=== PATIENT | female | born 1980 | race Caucasian/White ===

== ENCOUNTER 2018-03-05 15:54 | Inpatient (IN) | payer OTHER, SELFPAY ==
[2018-03-05 22:02] VITALS: BMI 26.4
[2018-03-05] MEDS: Lactated Ringer's 1,000 ML IV SCH (22:25)
[2018-03-05 22:44] LABS: Hemoglobin 12.5 g/dL (12.0-16.0); Mean Corpuscular HGB CONC 35.4 g/dL (32.0-36.0); Mean Corpuscular Hemoglobin 32.8 pg (27.0-31.0); Mean Corpuscular Volume 92.7 fL (78.0-98.0); Mean Platelet Volume 7.5 fL (7.4-10.4); Platelet Count 254 thou/uL (130-400); RBC Distribution Width 12.1 % (11.5-14.5); Red Blood Cell (RBC) Count 3.82 mill/uL (4.20-5.40); White Blood Cell (WBC) Count 8.1 thou/uL (4.8-10.8)
[2018-03-05] MEDS ORDERED: Ondansetron PF 4 MG/2 ML Vial IVP PRN (23:08)
[2018-03-05] MEDS ORDERED: Acetaminophen 500 MG TAB PO PRN (23:08)
[2018-03-05] MEDS ORDERED: Butorphanol Tartrate 1 MG/ML VIAL SLOW IVP PRN (23:08)
[2018-03-05] MEDS ORDERED: Promethazine HCl 25 MG/ML VIAL IM PRN (23:08)
[2018-03-05] MEDS ORDERED: Misoprostol 200 MCG TAB PR PRN (23:24)
[2018-03-05] MEDS ORDERED: NS / Oxytocin 40 units/1000ml 1,000 ML IV PRN (23:24)
[2018-03-05] MEDS ORDERED: Diphenoxylate HCl/Atropine Tablet PO PRN (23:24)
[2018-03-05] MEDS ORDERED: Carboprost 250 MCG/ML AMP IM PRN (23:24)
[2018-03-05] MEDS ORDERED: Ibuprofen 800 MG TAB PO PRN (23:24)
[2018-03-05] MEDS ORDERED: Lidocaine 1% (PF) 30 ML VIAL SC PRN (23:24)
[2018-03-05] MEDS ORDERED: Methylergonovine 0.2 MG/ML VIAL IM PRN (23:24)
--- NOTE | 2018-03-05 23:29 | PDOC.LDHP ---
Labor and Delivery H&P Chief complaint: scheduled induction HPI: 38 yo G1 @ 37.2 wks by LMP and 22.2 wk sono admitted for scheduled induction due to IUGR and placental insufficiency. Patient denies vaginal discharge/ bleeding, contractions, headache. Feels movement. Desires epidural. Plans to breastfeed. Current gestational age (weeks): 37 Due date: 04/12/18 Dating criteria: second trimester ultrasound (22.2 wk sono) Grav: 1 Para: 0 Current complications: gestational diabetes (A1GDM, diet controlled), IUGR (8.5% EFW on 03/04/18) Past Medical History: Denies Current medications: pre- vitamins Previous surgical history: appendectomy Allergies/Adverse Reactions: Allergies Allergy/AdvReac Type Severity Reaction Status Date / Time No Known Drug Allergies Allergy Verified 03/05/18 21:50 Social history: none - Physical Exam Vital signs reviewed and normal: yes General: NAD Heart: RRR Lungs: CTAB Abdomen: NTTP Extremeties: no edema FHT: category 1 (145/mod/+accel/no decel) [place] contractions every: no ctx - Vaginal Exam cm dilated: 0 Effacement: 0% Station: -3 - OB Labs Blood type: O RH: positive Antibody Screen: negative HIV: negative RPR: negative HEPSAg: negative 1 hour GCT: positive (141) 3 hour GTT: GBS: negative Rubella: immune - Assessment L&D Assessment: medically indicated induction - Plan Plan: admit to L&D, cervical ripening -: IOL, medically indicated - cervical exam closed/thick/high @ 2300 - cephalic on sono 03/04 - Cat I strip - desires epidural, anesthesia consult placed - plans to breast feed - plan to place cytotec for cervical ripening IUGR - EFW 54% @ 22wks - EFW 13% @ 36.6 - EFW 8.5% @ 37.1 - MFM recommended delivery before 38 wks - 03/04/18 BPP was 8/8 Placental insufficiency - S/D ratio 93% @ 36.6 - S/D ratio 96% @ 37.1 AMA - no abnormalities seen on sono A1GDM - well controlled, at goal with diet Late to care - poor dating, 22.2 wk sono Dispo: admit for IOL, plan for cervical ripening
[2018-03-05 23:37] LABS: HBSAg Index 0.27 S/CO (0-0.99); Hep B Surf Ag Non-Reactive S/CO (NonReactive)
[2018-03-05 23:45] LABS: Syphilis Antibody Nonreactive (Nonreactive); Syphilis Antibody Index 0.03 S/CO (<1.00 Non-Reactive)
[2018-03-05] MEDS: Misoprostol 100 MCG TAB VAG SCH (23:50)
[2018-03-05] MEDS: NS w/ Oxytocin 10 units 500 ML IV SCH (23:51)
--- NOTE | 2018-03-06 03:02 | PDOC.LDPN ---
Labor & Delivery Progress Note - Subjective Subjective: comfortable (mild pain with contractions) - Objective Abnormal vital signs: BP 157/92 General: NAD Uterine fundus: non tender Dilation: 0 Effacement: 0% Station: -3 FHT: category 1 (135/mod/+accel/no decel) [place] contractions every: 1-2 min Plan: continue plan of care, labor augmentation -: IOL, medically indicated - cervical exam closed/thick/high @ 2300 - 0315 closed/thick/high - cephalic on sono 03/04 - Cat I strip - desires epidural, anesthesia consult placed - plans to breast feed - received 1 dose cytotec, however unable to place another at this time d/t tachysystole - BP 150s-162 max systolic. Pt asymptomatic. Will get CMP, urine prot/cr. IUGR - EFW 54% @ 22wks - EFW 13% @ 36.6 - EFW 8.5% @ 37.1 - MFM recommended delivery before 38 wks - 03/04/18 BPP was 8/8 Placental insufficiency - S/D ratio 93% @ 36.6 - S/D ratio 96% @ 37.1 AMA - no abnormalities seen on sono A1GDM - well controlled, at goal with diet Late to care - poor dating, 22.2 wk sono
[2018-03-06 03:30] LABS: ALT (SGPT) 25 U/L (8-55); AST (SGOT) 24 U/L (5-34); Albumin 3.1 g/dL (3.5-5.0); Alkaline Phosphatase 179 U/L (40-150); Anion Gap 11 mmol/L (10-20); BUN (Urea Nitrogen) 16 mg/dL (7.0-18.7); Bilirubin, Total 0.3 mg/dL (0.2-1.2); Calc. Creatinine Clearance 117 mL/min (70-130); Carbon Dioxide 22 mmol/L (22-29); Chloride 107 mmol/L (98-107); Estimated GFR-MDRD Greater than 90; Glucose 94 mg/dL (70-105); Potassium 4.2 mmol/L (3.5-5.1); Protein, Total 6.1 g/dL (6.0-8.3); Sodium 136 mmol/L (136-145)
[2018-03-06] MEDS: Misoprostol 100 MCG TAB VAG SCH (06:21)
--- NOTE | 2018-03-06 07:58 | PDOC.LDPN ---
Labor & Delivery Progress Note - Subjective Subjective: comfortable, no concerns - Objective Abnormal vital signs: BP 160/73 @ 0654 General: NAD, resting, breathing through contractions Uterine fundus: non tender Dilation: 0.5 Effacement: 0% Station: -3 FHT: category 1 [place] contractions every: 2-3 every 10 minutes Resuscitative measures: maternal IV fluids Plan: labor augmentation -: 38YO @ 37.3 weeks by 22.2 week sono here for a medically indicated IOL. IOL, medically indicated - cephalic presentation on sono 03/04 - Cat I strip w/ baseline HR in 120-130s with moderate variability and accels present. 1 variable seen around 0600. - cervical exam 0.5/0/-3 @ 0700 s/p 1 dose of cytotec on admission. - Now cindi 2-3xs every [address] a second cytotec and possible place a balloon once patient is slightly more dilated. - Patient desires epidural, anesthesia consult placed. - plans to breast feed Elevated BP readings w/o diagnosis of HTN or HTN in : - Patient has had a few BP readings ranging from 150s-162 max systolic but remains asymptomatic. - CBC and CMP unremarkable. Urine protein/Cr pending. - Will continue to monitor pressures closely. IUGR - EFW 54% @ 22wks - EFW 13% @ 36.6 - EFW 8.5% @ 37.1 - MFM recommended delivery before 38 wks - 03/04/18 BPP was 8/8 Placental insufficiency - S/D ratio 93% @ 36.6 - S/D ratio 96% @ 37.1 AMA - no abnormalities seen on sono A1GDM - Aware, well controlled as patient is at goal with diet. Late to care - poor dating, 22.2 wk sono
[2018-03-06 10:19] LABS: Protein, Urine Random Quant Less than 10 mg/dL (1-14)
[2018-03-06] MEDS ORDERED: Fentanyl 4 mcg/Bup 0.1% Cadd 100 ML ONE ×2 (11:15→21:34)
--- NOTE | 2018-03-06 11:20 | PDOC.LDPN ---
Labor & Delivery Progress Note - Subjective Subjective: other (very uncomfortable during cervical check but otherwise comfortable) - Objective Abnormal vital signs: last BP 152/67 @ 0900 General: breathing through contractions Uterine fundus: non tender Dilation: fingertip Effacement: 0% Station: -2 FHT: category 1, variability present [place] contractions every: every 1-2 minutes Resuscitative measures: maternal IV fluids Plan: pitocin for augmentation -: 38YO @ 37.3 weeks by 22.2 week sono here for a medically indicated IOL. IOL, medically indicated - cephalic presentation on sono 03/04 - Cat I strip w/ baseline HR in 140s-150s with moderate variability and accels present. - cervical exam 0.5/0/-3 @ 1015 s/p 2 doses of cytotec. - Now cindi 1-2xs every 10 minutes but will go ahead and proceed with pitocin around 11:15, 4 hours from last dose of cytotec. - Will recheck around ~14:15 to assess for cervical change. - Of note, during this cervical check it was noted that the patient has a very narrow pelvis that may not be conducive for a . Patient was made aware of the fact that if she fails to adequately progress over the course of today she may need a C/S. But will proceed on with attempting a for now. - Epidural to be placed as soon as patient desires one. - Patient plans to breast feed. Pre-eclampsia: - Patient's last several BP have been in 150s-160s systolic with only one being in severe range at 163 since last cervical check @ ~0700. Urine protein/Cr ratio >0.3 significant for pre-e in setting of elevated BPs. - Will continue to monitor pressures closely & initiate Mg therapy if BPs remain persistently elevated at severe range. IUGR - EFW 54% @ 22wks - EFW 13% @ 36.6 - EFW 8.5% @ 37.1 - MFM recommended delivery before 38 wks - 03/04/18 BPP was 8/8 Placental insufficiency - S/D ratio 93% @ 36.6 - S/D ratio 96% @ 37.1 AMA - no abnormalities seen on sono A1GDM - Aware, well controlled as patient is at goal with diet. Late to care - poor dating, 22.2 wk sono
[2018-03-06] MEDS ORDERED: Acetaminophen 325 MG TAB PO PRN ×2 (11:53→11:54)
[2018-03-06] MEDS ORDERED: Naloxone HCl 0.4 mg/ml Vial IVP PRN ×4 (11:53→11:54)
[2018-03-06] MEDS ORDERED: diphenhydrAMINE 50 MG/ML VIAL IVP PRN ×2 (11:53→11:54)
[2018-03-06] MEDS ORDERED: Lactated Ringer's 500 ML IV PRN ×2 (11:53→11:54)
[2018-03-06] MEDS ORDERED: Eucerin (Mineral Oil/Petrolatum,White) 30 gm Jar TOP PRN ×2 (11:53→11:54)
[2018-03-06] MEDS ORDERED: Ondansetron PF 4 MG/2 ML Vial IVP PRN ×2 (11:53→11:54)
[2018-03-06] MEDS ORDERED: ePHEDrine/0.9% NaCl/PF SYRINGE 50 mg/10 ml SLOW IVP PRN ×2 (11:53→11:54)
[2018-03-06] MEDS ORDERED: Promethazine HCl 25 MG/ML VIAL IM PRN ×2 (11:53→11:54)
[2018-03-06] MEDS ORDERED: Communication Order-Pharmacy FS SCH ×2 (12:00)
[2018-03-06] MEDS ORDERED: Fentanyl 4 mcg/Bupivacaine 0.1% Cassette 100 ML EPIDURAL SCH (12:00)
[2018-03-06] MEDS: Lactated Ringer's 1,000 ML IV SCH (12:11)
--- NOTE | 2018-03-06 14:57 | PDOC.LDPN ---
Labor & Delivery Progress Note - Subjective Subjective: other (Pt has an epidural and it is working well. Denies complaints of pain, THOMASON, vision changes. ) - Objective Vital signs reviewed and normal: yes General: resting Dilation: 1 Effacement: 90% Station: -2 FHT: category 2, variable decelerations, variability present [place] contractions every: 2-3 Other exam findings: SROM @ 1415 with mec. Procedures: IUPC placed 1415 Resuscitative measures: amniofusion (Bolus 200cc and continuous rate at 100cc/hr ) -: 38 y/o G1 at 37.3wga admitted for induction for IUGR and placental insufficiency. 1. IOL: S/p 2 doses of Cytotec overnight & pitocin was started around 1100 and pt making adequate contractions. Pt's cervix checked and now /-2 at 1415 with SROM shortly afterward. IUPC then placed and noted decelerations that have improved with positional changes and Amnioinfusion. Epidural in place and BP's within normal limits and asymptomatic. Category 2 tracing that has since improved and now FHT 140, moderate variability, accels present, and ctxq2-3 mins. Continue monitoring. Pt updated through sequencing machine operator line and questions answered. 2. IUGR - EFW 54% @ 22wks - EFW 13% @ 36.6 - EFW 8.5% @ 37.1 - MFM recommended delivery before 38 wks - 03/04/18 BPP was 8/8 3. Placental insufficiency - S/D ratio 93% @ 36.6 - S/D ratio 96% @ 37.1 4. Elevated Blood Pressures - Pressures have been within normal limits since epidural. High and severe range pressures were during painful contractions. Urine pro/Cr ratio calculated and WNL. 5. AMA- no abnormalities seen on sono 6. A1GDM - BG Controlled. Accuchecks per protocol. 7. Late to care - poor dating, 22.2 wk sono Addendum - Attending - Attending Attestation Date/Time: 03/06/18 1602 I personally evaluated the patient and discussed the management with Dr. Lilly I agree with the History, Examination, Assessment and Plan documented above with any addition or exceptions noted below.P Pt SROMed for a moderate amount of particulate meconium. 1cm//-3 IUPC placed. After SROM started having recurrent deep late decelerations.Pitocin stopped, O2 started, patient repositioned to hands/knees and amnioinfusion started with improvement of decelerations. Cat II tracing for occasional late deceleration. Variability maintained. Now cindi q2-3min spontaneously with adequate MVUS. BP has been normotensive since getting epidural and urine protein/creatinine is not calculable. Would continue to monitor closely for signs of evolving pre eclampsia. Glucose all normal. Continue close monitoring. Discussed potential for delivery if baby continues to show signs of intolerance of labor.
--- NOTE | 2018-03-06 20:18 | PDOC.LDPN ---
Labor & Delivery Progress Note - Subjective Subjective: comfortable (Pitocin stopped at 2000 d/t a late deceleration; unable to titrate passed 4 so far. Pt resting comfortably.) - Objective Vital signs reviewed and normal: yes General: NAD, resting Dilation: 1.5 Effacement: 90% Station: -1 FHT: category 2, late decelerations [place] contractions every: 2-5 minutes IUPC placed: yes -: 38 y/o G1 at 37.3wks by 22.2 wk sono admitted for induction for IUGR and placental insufficiency. 1. sIUP -IOL: S/p 2 doses of Cytotec overnight & pitocin was started around 1100. -Pt's cervix checked at 1415 and was /-2 with SROM shortly afterward. IUPC then placed. -Pt had variables this afternoon and pitocin was stopped. Epidural in place and BP's within normal limits and asymptomatic currently. -Pt checked at 1700: 1/90/-1; pitocin restarted ~ 1700 -Pt checked at 2000: 1.5/90/-1; adequate contractions, unable to titrate pitocin ; one late variable present, cat 2 strip. -Plan to recheck in two hours; monitor closely 2. IUGR - EFW 54% @ 22wks - EFW 13% @ 36.6 - EFW 8.5% @ 37.1 - MFM recommended delivery before 38 wks - 03/04/18 BPP was 8/8 3. Placental insufficiency - S/D ratio 93% @ 36.6 - S/D ratio 96% @ 37.1 4. Elevated Blood Pressures - Pressures have been within normal limits since epidural. High and severe range pressures were during painful contractions. Urine pro/Cr ratio calculated and WNL. 5. AMA- no abnormalities seen on sono 6. A1GDM - BG Controlled. Accuchecks per protocol. 7. Late to care - 22.2 wk sono
[2018-03-07] MEDS: Misoprostol 100 MCG TAB VAG SCH ×2 (00:14→14:34)
--- NOTE | 2018-03-07 00:22 | PDOC.LDPN ---
Labor & Delivery Progress Note - Subjective Subjective: comfortable - Objective Vital signs reviewed and normal: yes General: NAD, resting Dilation: 1.5 Effacement: 75% Station: -1 FHT: category 1 (135/mod/+accel/no decel) [place] contractions every: 4-5 min IUPC placed: yes Plan: continue plan of care -: 38 y/o G1 at 37.3wks by 22.2 wk sono admitted for induction for IUGR and placental insufficiency. 1. sIUP -IOL: S/p 2 doses of Cytotec overnight & pitocin was started around 1100. -Pt's cervix checked at 1415 and was 1/90/-2 with SROM shortly afterward. IUPC then placed. -Pt had variables this afternoon and pitocin was stopped. Epidural in place and BP's within normal limits and asymptomatic currently. -Pt checked at 1700: 1/90/-1; pitocin restarted ~ 1700 -Pt checked at 2000: 1.5/90/-1; adequate contractions, unable to titrate pitocin ; one late variable present, cat 2 strip. -Pt checked at 0000: 1.5/80/-1; contractions spaced to q4-5 min, Cat I, nurse restarted pitocin. Plan for recheck @ 0400. 2. IUGR - EFW 54% @ 22wks - EFW 13% @ 36.6 - EFW 8.5% @ 37.1 - MFM recommended delivery before 38 wks - 03/04/18 BPP was 8/8 3. Placental insufficiency - S/D ratio 93% @ 36.6 - S/D ratio 96% @ 37.1 4. Elevated Blood Pressures - Pressures have been within normal limits since epidural. High and severe range pressures were during painful contractions. Urine pro/Cr ratio calculated and WNL. 5. AMA- no abnormalities seen on sono 6. A1GDM - BG Controlled 7. Late to care - 22.2 wk sono
[2018-03-07] MEDS ORDERED: Lidocaine 1% (PF) 30 ML VIAL ONE ×2 (03:02)
[2018-03-07] MEDS ORDERED: NS / Oxytocin 40 units/1000ml 0 ML ONE ×2 (03:02→03:03)
--- NOTE | 2018-03-07 04:12 | PDOC.LDPN ---
Labor & Delivery Progress Note - Subjective Subjective: comfortable - Objective Vital signs reviewed and normal: yes General: NAD Dilation: 1.5 Effacement: 90% Station: -1 FHT: category 2, variable decelerations, late decelerations [place] contractions every: 3-5 minutes IUPC placed: yes Resuscitative measures: amniofusion, maternal oxygen - Assessment (1) Term Code(s): Z34.80 - ENCOUNTER FOR SUPRVSN OF NORMAL , UNSP TRIMESTER Current Visit: Yes Status: Acute (2) Gestational hypertension Code(s): O13.9 - GESTATIONAL HTN W/O SIGNIFICANT PROTEINURIA, UNSP TRIMESTER Current Visit: Yes Status: Acute (3) Placental insufficiency Code(s): O36.5190 - MATERN CARE FOR KNOWN OR SUSP PLACNTL INSUFF, UNSP TRI, UNSP Current Visit: Yes Status: Acute (4) IUGR (intrauterine growth restriction) Current Visit: Yes Status: Acute (5) Late care Code(s): O09.30 - SUPRVSN OF PREG W INSUFFICIENT ANTENAT CARE, UNSP TRIMESTER Current Visit: Yes Status: Acute -: 38 y/o G1 at 37.3wks by 22.2 wk sono admitted for induction for IUGR and placental insufficiency. 1. sIUP -IOL: S/p 2 doses of Cytotec overnight & pitocin was started around 1100. -Pt's cervix checked at 1415 and was 1/90/-2 with SROM shortly afterward. IUPC then placed. -Pt had variables this afternoon and pitocin was stopped. Epidural in place and BP's within normal limits and asymptomatic currently. -Pt checked at 1700: 1/80/-1; pitocin restarted ~ 1700 -Pt checked at 2000: 1.5/80/-1; adequate contractions, unable to titrate pitocin ; one late variable present, cat 2 strip. -Pt checked at 0000: 1.5/80/-1; contractions spaced to q4-5 min, Cat I, nurse restarted pitocin. Plan for recheck @ 0400. -0130 pt had pit at 4 and developed several late decelerations that resolved; pitocin stopped -Pt checked at 0400: 1.5/80/-1; contractions spaced to q3-5 min, Cat II, variables present currently. Plan for recheck @ 0600. Will try to titrate pitocin again. 2. IUGR - EFW 54% @ 22wks - EFW 13% @ 36.6 - EFW 8.5% @ 37.1 - MFM recommended delivery before 38 wks - 03/04/18 BPP was 8/8 3. Placental insufficiency - S/D ratio 93% @ 36.6 - S/D ratio 96% @ 37.1 4. Elevated Blood Pressures - Pressures have been within normal limits since epidural. High and severe range pressures were during painful contractions. Urine pro/Cr ratio calculated and WNL. 5. AMA- no abnormalities seen on sono 6. A1GDM - BG Controlled 7. Late to care - 22.2 wk sono
[2018-03-07] MEDS ORDERED: CEFAZOLIN 2 GM/50 ML-DEXTROSE 2 GM in Premix Bag 1 BAG IVPB SCH (06:30)
[2018-03-07] MEDS ORDERED: Bicitra 30 ML UDCUP PO SCH (06:30)
[2018-03-07] MEDS ORDERED: CEFAZOLIN/Water 2 GM/20 ML SYRINGE SLOW IVP SCH (06:30)
[2018-03-07] MEDS ORDERED: Azithromycin 500 MG in Sodium Chloride 0.9% 250 ML 250 ML IVPB SCH (06:30)
[2018-03-07 07:01] LABS: Hemoglobin 13.6 g/dL (12.0-16.0); Mean Corpuscular HGB CONC 34.5 g/dL (32.0-36.0); Mean Corpuscular Hemoglobin 32.1 pg (27.0-31.0); Mean Platelet Volume 7.4 fL (7.4-10.4); Platelet Count 215 thou/uL (130-400); RBC Distribution Width 12.1 % (11.5-14.5); Red Blood Cell (RBC) Count 4.25 mill/uL (4.20-5.40); White Blood Cell (WBC) Count 13.3 thou/uL (4.8-10.8)
[2018-03-07] MEDS ORDERED: Fentanyl 4 mcg/Bup 0.1% Cadd 100 ML ONE (07:39)
[2018-03-07] MEDS ORDERED: hydrALAZINE 20 MG/ML VIAL ONE (08:35)
[2018-03-07] MEDS ORDERED: Labetalol HCl 100 MG/20 ML VIAL ONE (08:36)
[2018-03-07] MEDS ORDERED: ePHEDrine/0.9% NaCl/PF SYRINGE 50 mg/10 ml ONE ×2 (08:38→11:11)
[2018-03-07] MEDS ORDERED: Glycopyrrolate 0.2 MG/ML 5 ML SYRINGE ONE (08:38)
[2018-03-07] MEDS ORDERED: Calcium Gluc 4.6 MEQ/10 ML (100 MG/ML) SLOW IVP PRN (08:39)
[2018-03-07] MEDS ORDERED: Oxytocin 10 UNITS/ML VIAL ONE ×3 (08:39→09:51)
[2018-03-07] MEDS ORDERED: Succinylcholine Chloride 20 MG/ML 10 ml SYRINGE FS ONE (08:39)
[2018-03-07] MEDS ORDERED: Magnesium Sulfate 20 gm/500 ml 20 GM/500 ML BAG ONE (08:40)
[2018-03-07] MEDS ORDERED: Lidocaine 2% 10 ML INJ ONE ×2 (08:41→08:44)
[2018-03-07] MEDS ORDERED: Ondansetron PF 4 MG/2 ML Vial ONE ×2 (08:43→15:32)
[2018-03-07] MEDS ORDERED: Atropine Sulfate 0.4 mg/1 ml Vial ONE (08:44)
[2018-03-07] MEDS ORDERED: Magnesium Sulfate 20 gm/500 ml 20 GM/500 ML BAG IVPB SCH (08:45)
[2018-03-07] MEDS ORDERED: Sodium Chloride 0.9% 10 ML ONE (08:45)
[2018-03-07] MEDS ORDERED: Labetalol HCl 100 MG/20 ML VIAL SLOW IVP PRN (08:45)
[2018-03-07 09:00] LABS: ALT (SGPT) 21 U/L (8-55); AST (SGOT) 24 U/L (5-34); Alkaline Phosphatase 194 U/L (40-150); Anion Gap 14 mmol/L (10-20); BUN (Urea Nitrogen) 9 mg/dL (7.0-18.7); Bilirubin, Total 0.6 mg/dL (0.2-1.2); Calc. Creatinine Clearance 134 mL/min (70-130); Calcium 8.5 mg/dL (7.8-10.44); Carbon Dioxide 20 mmol/L (22-29); Chloride 106 mmol/L (98-107); Estimated GFR-MDRD Greater than 90; Glucose 78 mg/dL (70-105); Potassium 3.9 mmol/L (3.5-5.1); Sodium 136 mmol/L (136-145)
[2018-03-07] MEDS ORDERED: Magnesium Sulfate 20 GM/WATER 500 ML BAG IVPB SCH (09:00)
[2018-03-07] MEDS ORDERED: Fentanyl 100 MCG/2 ML VIAL ONE (09:24)
[2018-03-07] MEDS ORDERED: PROPOFOL 20 ML ONE (09:25)
[2018-03-07] MEDS ORDERED: Ketamine 50 MG/ML (10ML VIAL) ONE (09:37)
[2018-03-07 09:52] LABS: Actual Bicarbonate (HCO3a) 20.3 mEq/L (22-28); Analyzer IN Cardio OR
[2018-03-07] MEDS ORDERED: Metoclopramide HCl 10 MG/2 ML VIAL ONE ×2 (09:56→15:32)
[2018-03-07] MEDS ORDERED: Adacel (T-DAP) 0.5 ML SYRINGE IM ONE (10:10)
[2018-03-07] MEDS ORDERED: Acetaminophen/Codeine 30-300mg Tablet PO PRN ×2 (10:10)
[2018-03-07] MEDS ORDERED: Lanolin Ointment 7 GM TUBE TOP PRN (10:10)
[2018-03-07] MEDS ORDERED: NS / Oxytocin 40 units/1000ml 1,000 ML IV SCH (10:15)
[2018-03-07] MEDS ORDERED: Bupivacaine HCl 0.25%/Epi 0.0005/PF 10 ML VIAL FS ONE (11:11)
[2018-03-07] MEDS ORDERED: Acetaminophen 1,000 MG in Premix Bag 1 BAG IVPB SCH (11:15)
--- NOTE | 2018-03-07 11:17 | PDOC.OPDEL ---
OB Operative/Delivery Note Delivery Dr/Surgeon: Evangelist Kay Assist: Attending: Pre-Delivery Diagnosis: arrest of dilation, non-reassuring tracing Procedure/Post Delivery Dx: primary low transverse CS Weeks gestation: 37 Anesthesia: epidural - Additional Findings/Plan Placenta delivered: manual removal Estimated blood loss: 661 Compilations/Other Findings: Date of Procedure: 03/07/18 Resident Surgeon: Rahul Senior Manufacturing Test Engineer Surgeon: Evangelist Attending Surgeon: Procedure: Primary low transverse caesarean section Preoperative Diagnosis: 1)Term intrauterine 2)Placental insufficiency 3)Gestational hypertension with severe features vs Preeclampsia with severe features 4)Intra-amniotic Infection 5)Gestational Diabetes 6)Advanced Maternal Age Postoperative Diagnosis: 1)Term intrauterine , delivered 2)Placental insufficiency 3)Gestational hypertension with severe features vs Preeclampsia with severe features 4)Intra-amniotic Infection 5)Gestational Diabetes 6)Advanced Maternal Age Anesthesia: spinal Indications: The patient is a 38year old G1 female at 37.4 weeks gestation who presents for induction of labor 2/2 placental insufficiency and IUGR, now s/p primary low transverse section 2/2 intolerance of labor with persistent cat 2 strip and failure to progress. Procedure in Detail: After risks, benefits, and alternatives were explained to the patient, she gave informed consent. Pre-operative antibiotics included Cefazolin 2 gram IV and azithromicin 500mg IV X1. The patient developed a fever prior to transportation to the operating room and subsequently was started on Amp and Gent. The patient then spiked several severe range blood pressures. Labetalol 20mg IV was given X1. Mag was started. Additional labs collected. The patient was then taken to the operating room and spinal anesthesia was initiated. She was placed in the supine position with a left tilt and prepped and draped in usual sterile fashion. A Pfannenstiel incision was made with a scalpel and carried down to the level of the fascia which was sharply nicked. The fascial cut was extended bilaterally with [place] sissors. The inferior and superior edges of the cut fascial edges were elevated with Arcadio clamps and the underlying rectus muscles were sharply and bluntly dissected free. The recti were divided digitally and retracted manually. The peritoneum was entered bluntly and retracted manually. Bladder blade was placed. A low transverse score was made with the scalpel and the uterus was entered in the midline with the scalpel. Clear fluid was seen. The hysterotomy was extended manually. The was noted to be OP and asynclitic and was delivered by fundal pressure. Mouth and nares were bulb suctioned. Cord clamped and cut and grossly normal female was handed to waiting nurse. Cord gas was obtained. Placenta was manually extracted, found to be intact with 3 vessel cord and discarded. The uterus was externalized and the endometrium was curetted with a dry lap. The bladder blade was replaced and the uterus was closed with a running locking # 0- Vicryl CT-1 followed by a running non-locking 0-Vicryl CT-1 imbricating layer with two additional figure of eight stitches, followed by good hemostasis. Following this hemostasis was noted. The uterus was internalized and the hysterotomy was again noted to be hemostatic. The peritoneum was closed with a 3 -0 Vicryl suture. The fascia was closed with a running non-locking PDS suture. The subcutaneous tissue was irrigated and there were no bleeders. The skin was sewn with a 4-0 Monocryl suture, dermabond applied and covered with a dressing. All counts were correct. The patient tolerated the procedure well and was taken to the recovery room in stable condition. Estimated Blood Loss: 661 Specimens: Cord gas and placenta send to lab Findings: Grossly normal female infant with Apgars of 1 and 9. Drains: Breen to gravity draining clear urine Post delivery plan: routine recovery
[2018-03-07 12:05] LABS: Creatinine, Urine 50.52 mg/dL (47-110)
[2018-03-07] MEDS: GENTAMICIN SULFATE IVPB SCH (12:49)
[2018-03-07] MEDS: SODIUM CHLORIDE 0.9% IVPB SCH (12:49)
[2018-03-07] MEDS ORDERED: Ibuprofen 800 MG TAB PO SCH ×2 (14:00→15:45)
[2018-03-07] MEDS: Lactated Ringer's 1,000 ML IV SCH ×2 (14:33→17:20)
[2018-03-07] MEDS: Ampicillin 2 GM in Sodium Chloride 0.9% 100 ML IVPB SCH ×2 (14:45→21:00)
[2018-03-07] MEDS ORDERED: Lidocaine 1% PF 5 ML VIAL ONE (15:32)
--- NOTE | 2018-03-07 17:16 | PDOC.EVN ---
Event Note - Event Note Event Note: S: resting comfortably. Denies CP, THOMASON, or vision changes O: BP all <120/80, normal reflexes, urine output >200 mL/hr A&P: Protein/Cr ratio came back at 0.6 giving here diagnosis of pre-eclampsia. PP BP well controlled. Will consider stopping mag at 12 hours if UOP, BP, and asymptomatic. Diet started. NSAIDs and norco for pain control. Discussed with Dr. Fernandez.
--- NOTE | 2018-03-07 20:49 | PDOC.EVN ---
Event Note - Event Note Event Note: S: resting comfortably. Denies CP, THOMASON, SOB or vision changes O: BP 108/81, normal reflexes, urine output 300 mL/hr A&P: Protein/Cr ratio came back at 0.6 giving here diagnosis of pre-eclampsia. PP BP well controlled. urine output excellent with BPs wnl, and asymptomatic. Diet started. NSAIDs and norco for pain control. Will stop mag and transfer to post .
[2018-03-07] MEDS: Ferrous Sulfate 325 MG TAB PO SCH (21:00)
[2018-03-07] MEDS: Docusate Calcium (SURFAK) 240 MG CAP PO SCH (21:00)
[2018-03-07] MEDS: Ibuprofen 800 MG TAB PO SCH (22:30)
[2018-03-08] MEDS: Ampicillin 2 GM in Sodium Chloride 0.9% 100 ML IVPB SCH ×4 (03:00→21:24)
[2018-03-08 05:59] LABS: Hemoglobin 11.3 g/dL (12.0-16.0); Mean Corpuscular HGB CONC 34.8 g/dL (32.0-36.0); Mean Corpuscular Hemoglobin 32.6 pg (27.0-31.0); Mean Corpuscular Volume 93.7 fL (78.0-98.0); Mean Platelet Volume 7.3 fL (7.4-10.4); Platelet Count 200 thou/uL (130-400); RBC Distribution Width 12.2 % (11.5-14.5); Red Blood Cell (RBC) Count 3.48 mill/uL (4.20-5.40); White Blood Cell (WBC) Count 17.6 thou/uL (4.8-10.8)
[2018-03-08] MEDS: Ibuprofen 800 MG TAB PO SCH ×3 (06:20→21:25)
[2018-03-08] MEDS: Lactated Ringer's 1,000 ML IV SCH ×6 (08:44→23:47)
[2018-03-08] MEDS: NS w/ Oxytocin 10 units 500 ML IV SCH ×2 (08:45→08:52)
[2018-03-08] MEDS: Ferrous Sulfate 325 MG TAB PO SCH ×2 (08:47→21:30)
--- NOTE | 2018-03-08 09:03 | PDOC.PP ---
Post Progress Note Post Day #: 1 Subjective: 38 yo G1 s/p primary LTCS at 37.4wks 2/2 intolerance of labor and failure to progress. Pt also developed preE with severe features yesterday morning and fevered to 100.6. She was started on amp/gent for her IAI. She's doing well this am. Endorses some mild pain. Discussed that she can ask the nurse for tylenol in addition to the norco for pain control. Magnesium was dc'd last night at 12 hours post delivery. She has had no severe range bp's since yesterday am. The vogt was pulled and she has not yet urinated on her own. She is passing flatus. She tolerated liquids last night and ordered pancakes this morning for breakfast. PO intake tolerated: yes Flatus: yes Ambulation: no Vital Signs (12 hours) Temp Pulse Resp BP Pulse Ox 03/08/18 08:15 98.2 F 67 18 146/65 H 97 Weight Weight 63.503 kg - Physical Examination General: NAD Cardiovascular: no m/r/g, RRR Respiratory: clear to auscultation bilaterally, non-labored breathing Abdominal: appropriately TTP Skin: CS incision dry & intact Neurological: no gross focal deficits Psychiatric: A&Ox3, normal affect Result Diagrams: 03/08/18 05:44 03/07/18 06:45 Additional Labs: Post Labs Blood Type O POSITIVE 03/05/18 22:35 Hep Bs Antigen Non-Reactive S/CO (NonReactive) 03/05/18 22:35 Rubella IgG Antibody 4.29 index (Immune >0.99) 03/05/18 22:35 (1) Term Code(s): Z34.80 - ENCOUNTER FOR SUPRVSN OF NORMAL , UNSP TRIMESTER Status: Acute (2) Gestational hypertension Code(s): O13.9 - GESTATIONAL HTN W/O SIGNIFICANT PROTEINURIA, UNSP TRIMESTER Status: Acute (3) Placental insufficiency Code(s): O36.5190 - MATERN CARE FOR KNOWN OR SUSP PLACNTL INSUFF, UNSP TRI, UNSP Status: Acute (4) IUGR (intrauterine growth restriction) Status: Acute (5) Late care Code(s): O09.30 - SUPRVSN OF PREG W INSUFFICIENT ANTENAT CARE, UNSP TRIMESTER Status: Acute (6) Pre-eclampsia, severe, delivered Code(s): O14.14 - SEVERE PRE-ECLAMPSIA COMPLICATING CHILDBIRTH Status: Acute (7) Gestational diabetes mellitus Code(s): O24.419 - GESTATIONAL DIABETES MELLITUS IN , UNSP CONTROL Status: Ruled-out (8) Advanced maternal age (AMA) in Code(s): [id number] - Status: Acute - Assessment/Plan 38 y/o G1 at 37.4wks by 22.2 wk sono admitted for induction for IUGR and placental insufficiency now s/p primary LTCS 2/2 intolerance of labor and failure to progress with development of preE with severe features and IAI. # sIUP, delivered -s/p primary LTCS 2/2 intolerance of labor and failure to progress with development of preE with severe features and IAI. -Pt s/p 12 hours magnesium; no sever range bp's since yesterday am -Pt currently on Amp/Gent and has been afebrile for 24 hours. -Pt had vogt pulled this morning. Has not urinated on her own yet. Tolerating liquids. Plan to advance diet today. Passing flatus. Has not stooled. Has not ambulated yet. Mild pain this morning. Discussed asking nurse for pain meds ( norco or tylenol) for adequate pain control. # PreE with severe features- -s/p magnesium for 12 hours; no severe range bp's since yesterday am before the surgery -bps 140s overnight; will consider starting labetalol upon dc # AMA- no abnormalities seen on sono # A1GDM - BG controlled, hba1c 6wks post # Late to care - 22.2 wk sono # IUGR # Placental insufficiency Dispo: likely dc ~ 72 hours post CS
[2018-03-08] MEDS: Docusate Calcium (SURFAK) 240 MG CAP PO SCH ×2 (10:30→21:25)
[2018-03-08] MEDS: Prenatal Vitamin 1 TAB PO SCH (10:30)
[2018-03-08] MEDS: SODIUM CHLORIDE 0.9% IVPB SCH (10:30)
[2018-03-08] MEDS: GENTAMICIN SULFATE IVPB SCH (10:30)
[2018-03-08 12:51] LABS: #Lymphocytes 1.2 thou/uL (1.20-3.40); #Monocytes 0.6 thou/uL (0.11-0.59); #Neutrophils 13.2 thou/uL (1.40-6.50); %Basophils 0.1 % (0.0-1.0); %Eosinophils 0.3 % (0.0-10.0); %Lymphocytes 7.8 % (21.0-51.0); %Neutrophils 87.8 % (42.0-75.0); Hemoglobin 10.6 g/dL (12.0-16.0); Mean Corpuscular HGB CONC 33.8 g/dL (32.0-36.0); Mean Corpuscular Volume 94.8 fL (78.0-98.0); Mean Platelet Volume 7.4 fL (7.4-10.4); Platelet Count 191 thou/uL (130-400); RBC Distribution Width 12.4 % (11.5-14.5); Red Blood Cell (RBC) Count 3.32 mill/uL (4.20-5.40); White Blood Cell (WBC) Count 15.1 thou/uL (4.8-10.8)
[2018-03-08] MEDS: HYDROcodone/Acetaminophen 5/325 mg Tablet PO PRN ×3 (13:19→21:25)
[2018-03-08] MEDS: Simethicone Chewable 80 MG TAB PO PRN (21:25)
[2018-03-09] MEDS: NS w/ Oxytocin 10 units 500 ML IV SCH
[2018-03-09] MEDS: Ampicillin 2 GM in Sodium Chloride 0.9% 100 ML IVPB SCH ×2 (03:03→09:38)
[2018-03-09] MEDS: Ibuprofen 800 MG TAB PO SCH ×3 (05:34→21:16)
--- NOTE | 2018-03-09 08:03 | PDOC.PP ---
Post Progress Note Post Day #: 2 Subjective: 38 yo G1 s/p primary LTCS at 37.4wks 2/2 intolerance of labor and failure to progress. Pt also developed preE with severe features IAI with non- haemolytic strep growing on the side of the placenta. She has received almost 48 hours of bx. She's doing well this am. Endorses some mild pain. Magnesium was dc'd at 12 hours post delivery. She has had no severe range bp' s. Actually all her bp's overnight were in the 110s systolic. She has urinated on her own. She is passing flatus. She is tolerating a normal diet. Endorses pain with movement. PO intake tolerated: yes Flatus: yes Ambulation: yes Vital Signs (12 hours) Temp Pulse Resp BP BP Pulse Ox 03/09/18 07:35 98.1 F 82 20 115/56 L 95 03/09/18 03:10 97.9 F 62 16 110/56 L 03/08/18 23:47 98.4 F 64 16 111/69 Weight Weight 63.503 kg - Physical Examination General: NAD Cardiovascular: no m/r/g, RRR Respiratory: clear to auscultation bilaterally Abdominal: no distention, appropriately TTP Deviation from normal: hypoactive bowel sounds Fundus firm & at: umbilicus Skin: CS incision dry & intact Neurological: no gross focal deficits Psychiatric: A&Ox3 Result Diagrams: 03/08/18 12:28 03/07/18 06:45 Additional Labs: Post Labs Blood Type O POSITIVE 03/05/18 22:35 Hep Bs Antigen Non-Reactive S/CO (NonReactive) 03/05/18 22:35 Rubella IgG Antibody 4.29 index (Immune >0.99) 03/05/18 22:35 (1) S/P primary low transverse Code(s): Z98.891 - HISTORY OF UTERINE SCAR FROM PREVIOUS SURGERY Status: Acute (2) Chorioamnionitis, delivered, current hospitalization Code(s): O41.1290 - CHORIOAMNIONITIS, UNSP TRIMESTER, NOT APPLICABLE OR UNSP Status: Acute (3) Pre-eclampsia, severe, delivered Code(s): O14.14 - SEVERE PRE-ECLAMPSIA COMPLICATING CHILDBIRTH Status: Acute (4) Term Code(s): Z34.80 - ENCOUNTER FOR SUPRVSN OF NORMAL , UNSP TRIMESTER Status: Acute (5) Placental insufficiency Code(s): O36.5190 - MATERN CARE FOR KNOWN OR SUSP PLACNTL INSUFF, UNSP TRI, UNSP Status: Acute Qualifiers: Fetus number: single or unspecified fetus Trimester: third trimester Qualified Code(s): O36.5130 - Maternal care for known or suspected placental insufficiency, third trimester, not applicable or unspecified (6) IUGR (intrauterine growth restriction) Status: Acute (7) Late care Code(s): O09.30 - SUPRVSN OF PREG W INSUFFICIENT ANTENAT CARE, UNSP TRIMESTER Status: Acute (8) Gestational diabetes mellitus Code(s): O24.419 - GESTATIONAL DIABETES MELLITUS IN , UNSP CONTROL Status: Ruled-out Qualifiers: Gestational diabetes mellitus control: diet-controlled (9) Advanced maternal age (AMA) in Code(s): [id number] - Status: Acute - Assessment/Plan 38 y/o G1 at 37.4wks by 22.2 wk sono admitted for induction for IUGR and placental insufficiency now s/p primary LTCS 2/2 intolerance of labor and failure to progress with development of preE with severe features and IAI. POD2 # sIUP, delivered -s/p primary LTCS 2/2 intolerance of labor and failure to progress with development of preE with severe features and IAI. Placenta side grew non haemolytic strep. Pt currently on Amp/Gent and has been afebrile for almost 48 hours. Will dc abx after 48 hours. WBC count downtrending. -Pt s/p 12 hours magnesium; normal bp's overnight, 110s systolic. -Pt had vogt pulled yesterday morning. Ambulating, tolerating normal diet, passing flatus. Has not stooled. Mild pain this morning. Discussed asking nurse for pain meds (norco or tylenol) for adequate pain control. # PreE with severe features- -s/p magnesium for 12 hours; normal bp's -pt may not need medication #IAI-non haemolytic strep on placenta ( side). Mom afebrile >24 hours. Will dc after 48 hours (~0900 today). Will continue to monitor for s/s of infection. Will change abx pending sensitivities and clinical course if indicated. # AMA- no abnormalities seen on sono # A1GDM - BG controlled, hba1c 6wks post # Late to care - 22.2 wk sono # IUGR # Placental insufficiency Dispo: likely dc at 72 post delivery which will be tomorrow.
[2018-03-09] MEDS: Docusate Calcium (SURFAK) 240 MG CAP PO SCH ×2 (09:38→21:16)
[2018-03-09] MEDS: Ferrous Sulfate 325 MG TAB PO SCH ×2 (09:38→22:28)
[2018-03-09] MEDS: Prenatal Vitamin 1 TAB PO SCH (09:38)
[2018-03-09] MEDS: GENTAMICIN SULFATE IVPB SCH (10:04)
[2018-03-09] MEDS: SODIUM CHLORIDE 0.9% IVPB SCH (10:04)
[2018-03-09] MEDS: Lactated Ringer's 1,000 ML IV SCH (12:28)
[2018-03-09] MEDS: HYDROcodone/Acetaminophen 5/325 mg Tablet PO PRN (13:08)
[2018-03-09] MEDS: Simethicone Chewable 80 MG TAB PO PRN (21:16)
[2018-03-10] MEDS: Ibuprofen 800 MG TAB PO SCH (05:10)
[2018-03-10] MEDS: Ferrous Sulfate 325 MG TAB PO SCH (07:45)
--- NOTE | 2018-03-10 07:50 | PDOC.PP ---
Post Progress Note Post Day #: 3 Subjective: 38 yo G1 s/p primary LTCS at 37.4wks 2/2 intolerance of labor and failure to progress. Pt also developed preE with severe features IAI with strep pasteuranus growing on the side of the placenta. She has received 48 hours of abx. She's doing well this am. Magnesium was dc'd at 12 hours post delivery. She has had no severe range bp's and actually wnl since delivery. She has urinated on her own. She is passing flatus. She is tolerating a normal diet. Endorses pain with movement. Able to ambulate with mild pain. Ready to go home. PO intake tolerated: yes Flatus: yes Ambulation: yes Vital Signs (12 hours) Temp Pulse Resp BP Pulse Ox 03/09/18 20:08 98.1 F 67 20 108/59 L 97 Weight Weight 63.503 kg - Physical Examination General: NAD Cardiovascular: no m/r/g, RRR Respiratory: clear to auscultation bilaterally, non-labored breathing Abdominal: + bowel sounds, appropriately TTP Skin: CS incision dry & intact, no rash Neurological: no gross focal deficits Psychiatric: A&Ox3, normal affect Result Diagrams: 03/08/18 12:28 03/07/18 06:45 Additional Labs: Post Labs Blood Type O POSITIVE 03/05/18 22:35 Hep Bs Antigen Non-Reactive S/CO (NonReactive) 03/05/18 22:35 Rubella IgG Antibody 4.29 index (Immune >0.99) 03/05/18 22:35 (1) S/P primary low transverse Code(s): Z98.891 - HISTORY OF UTERINE SCAR FROM PREVIOUS SURGERY Status: Acute (2) Chorioamnionitis, delivered, current hospitalization Code(s): O41.1290 - CHORIOAMNIONITIS, UNSP TRIMESTER, NOT APPLICABLE OR UNSP Status: Acute (3) Pre-eclampsia, severe, delivered Code(s): O14.14 - SEVERE PRE-ECLAMPSIA COMPLICATING CHILDBIRTH Status: Acute (4) Term Code(s): Z34.80 - ENCOUNTER FOR SUPRVSN OF NORMAL , UNSP TRIMESTER Status: Acute (5) Placental insufficiency Code(s): O36.5190 - MATERN CARE FOR KNOWN OR SUSP PLACNTL INSUFF, UNSP TRI, UNSP Status: Acute Qualifiers: Fetus number: single or unspecified fetus Trimester: third trimester Qualified Code(s): O36.5130 - Maternal care for known or suspected placental insufficiency, third trimester, not applicable or unspecified (6) IUGR (intrauterine growth restriction) Status: Acute (7) Late care Code(s): O09.30 - SUPRVSN OF PREG W INSUFFICIENT ANTENAT CARE, UNSP TRIMESTER Status: Acute (8) Gestational diabetes mellitus Code(s): O24.419 - GESTATIONAL DIABETES MELLITUS IN , UNSP CONTROL Status: Ruled-out Qualifiers: Gestational diabetes mellitus control: diet-controlled (9) Advanced maternal age (AMA) in Code(s): [id number] - Status: Acute - Assessment/Plan 38 y/o G1 at 37.4wks by 22.2 wk sono admitted for induction for IUGR and placental insufficiency now s/p primary LTCS 2/2 intolerance of labor and failure to progress with development of preE with severe features and IAI. POD3 # sIUP, delivered -s/p primary LTCS 2/2 intolerance of labor and failure to progress with development of preE with severe features and IAI. Placenta side grew non haemolytic strep. Pt currently on Amp/Gent and has been afebrile for almost 48 hours. Will dc abx after 48 hours. WBC count downtrending. -Pt s/p 12 hours magnesium; normal bp's overnight, 110s systolic. -Ambulating, tolerating normal diet, passing flatus, urinating. Has not stooled. # PreE with severe features- -s/p magnesium for 12 hours; normal bp's -will dc pt with one week follow-up at [facility] for bp check #IAI-non haemolytic strep on placenta ( side) now especiated to strep pasteuranus. Mom afebrile >48 hours. Mom received 48 hours of abx. # AMA- no abnormalities seen on sono # A1GDM - BG controlled, hba1c 6wks post # Late to care - 22.2 wk sono for dating # IUGR # Placental insufficiency Dispo: likely dc today Addendum - Attending - Attending Attestation Date/Time: 03/10/18 1650 I personally evaluated the patient and discussed the management with Dr. Lilly and team. I agree with and repeated the History, Examination, Assessment and Plan documented above with any addition or exceptions noted below.
[2018-03-10 08:20] VITALS: BP 126/65; TEMP 97.5
[2018-03-10] MEDS: Docusate Calcium (SURFAK) 240 MG CAP PO SCH (09:46)
[2018-03-10] MEDS: Prenatal Vitamin 1 TAB PO SCH (09:46)
== END 2018-03-10 11:20 | disposition home or self-care (01) | DRG 788 ==
LOC: L&D 20:54 → 3SW 03-08 08:20
PROVIDERS: ADMIT Emergency Medicine; ATTEND Emergency Medicine
PROC: 10D00Z1 Extraction of Products of Conception, Low, Open Approach (ICD-10-PCS; principal; 2018-03-05)
DX: O62.1 Secondary uterine inertia (principal); Z3A.37 37 weeks gestation of pregnancy; Z37.0 Single live birth; O24.429 Gestational diabetes mellitus in childbirth, unspecified control; O13.4 Gestational [pregnancy-induced] hypertension without significant proteinuria, complicating childbirth; O36.5930 Maternal care for other known or suspected poor fetal growth, third trimester, not applicable or unspecified; O76 Abnormality in fetal heart rate and rhythm complicating labor and delivery
CPT/HCPCS: 36415; 36416; 51702; 80053; 82570; 82805; 84156; 85027; 86762; 86780; 86850; 86900; 86901; 87040; 87070; 87077; 87205; 87340; 88307; J0131; J0290; J0360; J0456; J0461; J1580; J2001; J2405; J2590; J2704; J2765; J3010; J3475; J7050